=== PATIENT | male | born 2005 | race African-American/Black ===

== ENCOUNTER 2023-05-20 12:42 | Emergency (ER) | payer MEDICAID ==
[~2023-05-20] VITALS: Ht 167.6 cm; Wt 68.0 kg
[2023-05-20 13:02] VITALS: O2SAT 100
[2023-05-20] MEDS ORDERED: BACITRACIN ZINC OINT UDPKT TOP ONE (13:45)
[2023-05-20] MEDS ORDERED: LIDOCAINE HCL/PF 1% 10 MG/ML 5ML VIAL INFIL ONE (13:45)
[2023-05-20 17:05] VITALS: BP 139/85; PULSE 64; RESP 19; TEMP 98.2
== END 2023-05-20 17:09 | disposition home or self-care (01) ==
LOC: ER 13:44
DX: S61.412A Laceration without foreign body of left hand, initial encounter (principal); W31.9XXA Contact with unspecified machinery, initial encounter; Y93.89 Activity, other specified; Y92.89 Other specified places as the place of occurrence of the external cause; Y99.8 Other external cause status
CPT/HCPCS: 99283; 73130; 12001; J3490